=== PATIENT | female | born 1945 | race African-American/Black ===

== ENCOUNTER 2021-02-09 07:13 | Inpatient (IN) | payer OTHER ==
[2021-02-09 07:33] VITALS: BMI 25.4
[2021-02-09] MEDS ORDERED: HYDROmorphone HCL CARPU-JECT 2 MG/1 ML DISP.SYRIN IVPB ONE ×2 (07:50→15:59)
[2021-02-09] MEDS ORDERED: SODIUM CHLORIDE 500 ML IV STA (07:50)
[2021-02-09] MEDS ORDERED: HYDROmorphone HCl 2 MG/ML VIAL ONE ×2 (07:52→15:19)
[2021-02-09 09:01] LABS: BASO % 1.6 % (0-2.0); LYMPH % 5.2 % (8-40); MCH 35.8 pg (25.7-33.7); MEAN CELL VOLUME 99.4 fl (80-96); MEAN PLT VOLUME 8.7 fl (7.5-11.1); NEUT % 82.2 % (42.8-82.8); PLATELET COUNT 236 10^3/uL (134-434); RBC 1.51 M/mm3 (3.60-5.2); RDW 19.8 % (11.6-15.6); WHITE BLOOD COUNT 15.8 K/mm3 (4.0-10.0)
[2021-02-09 09:03] LABS: CALCIUM 8.9 mg/dL (8.5-10.1)
[2021-02-09 09:04] LABS: ALBUMIN 3.5 g/dl (3.4-5.0); BLOOD UREA NITROGEN 62.5 mg/dL (7-18)
[2021-02-09 09:06] LABS: RETICULOCYTES 6.46 % (0.5-1.5)
[2021-02-09 09:07] LABS: CREATININE 2.5 mg/dL (0.55-1.3)
[2021-02-09 09:09] LABS: BILIRUBIN,TOTAL 1.7 mg/dL (0.2-1)
[2021-02-09 09:12] LABS: HEMOGLOBIN 5.4 GM/dL (10.7-15.3)
[2021-02-09 10:07] LABS: ERYTHROCYTE SEDIMENTATION RATE 34 mm/hr (0-30)
[2021-02-09 10:11] LABS: INR 0.97 (0.83-1.09); PROTHROMBIN TIME (PATIENT) 11.4 SEC (9.7-13.0)
[2021-02-09 11:26] LABS: EPI CELLS 13 /uL (0-25.1); HYALINE CASTS 0 /uL (0-3.1); PH,URINE 5.5 (5.0-8.0); URINE APPEARANCE CLEAR; URINE BACTERIA 15 /uL (0-1359); URINE BILIRUBIN NEGATIVE (NEGATIVE); URINE COLOR YELLOW; URINE GLUCOSE (UA) NEGATIVE (NEGATIVE); URINE KETONE NEGATIVE (NEGATIVE); URINE LEUK ESTERASE NEGATIVE (NEGATIVE); URINE NITRITE NEGATIVE (NEGATIVE); URINE PROTEIN 3+ (NEGATIVE); URINE RBC 9 /uL (0-23.9); URINE UROBILINOGEN 0.2 mg/dL (0.2-1.0); URINE WBC 15 /uL (0-25.8)
[2021-02-09] MEDS ORDERED: HYDROmorphone HCL CARPU-JECT 2 MG/1 ML DISP.SYRIN IVPUSH PRN (13:06)
[2021-02-09] MEDS ORDERED: ACETAMINOPHEN 325 MG TABLET (FP) PO PRN (13:08)
[2021-02-09] MEDS ORDERED: HYDROmorphone HCl 2 MG/ML VIAL IVPB PRN (13:19)
[2021-02-09] MEDS ORDERED: HEPARIN NA (PORCINE) 5,000 UNITS/ML 1ML VIAL ONE (14:48)
[2021-02-09] MEDS: HEPARIN NA (PORCINE) 5,000 UNITS/ML 1ML VIAL SQ SCH ×2 (14:54→21:24)
[2021-02-09] MEDS: INSULIN SLIDING SCALE (NOVOLOG) 1 VIAL SQ SCH ×2 (17:32→21:25)
[2021-02-09] MEDS ORDERED: INSULIN REGULAR HUMAN 100 UNITS/ML *VIAL ONE (17:36)
[2021-02-09] MEDS: traZODone HCL 50 MG TABLET (FP) PO SCH (21:24)
[2021-02-09] MEDS: LABETALOL HCL 100 MG TABLET (FP) PO SCH (21:24)
[2021-02-09] MEDS: HYDROmorphone HCl 2 MG/ML VIAL IVPB PRN (21:53)
[2021-02-10] MEDS: HYDROmorphone HCl 2 MG/ML VIAL IVPB PRN ×2 (03:53→08:39)
[2021-02-10] MEDS: HEPARIN NA (PORCINE) 5,000 UNITS/ML 1ML VIAL SQ SCH ×2 (05:38→14:01)
[2021-02-10] MEDS: INSULIN SLIDING SCALE (NOVOLOG) 1 VIAL SQ SCH ×4 (06:08→21:55)
[2021-02-10 07:28] LABS: BASO % 0.8 % (0-2.0); EOS % 1.8 % (0-4.5); HEMATOCRIT 13.2 % (32.4-45.2); LYMPH % 9.5 % (8-40); MCH 35.6 pg (25.7-33.7); MCHC 35.6 g/dl (32.0-36.0); MEAN PLT VOLUME 8.3 fl (7.5-11.1); MONO % 8.5 % (3.8-10.2); NEUT % 79.4 % (42.8-82.8); PLATELET COUNT 196 10^3/uL (134-434); RBC 1.32 M/mm3 (3.60-5.2); RDW 20.6 % (11.6-15.6); WHITE BLOOD COUNT 13.6 K/mm3 (4.0-10.0)
[2021-02-10 07:32] LABS: HEMOGLOBIN 4.7 GM/dL (10.7-15.3)
[2021-02-10 07:48] LABS: CALCIUM 9.1 mg/dL (8.5-10.1)
[2021-02-10 07:49] LABS: ALBUMIN 3.1 g/dl (3.4-5.0); BLOOD UREA NITROGEN 49.1 mg/dL (7-18)
[2021-02-10 07:52] LABS: CREATININE 2.2 mg/dL (0.55-1.3); MAGNESIUM 3.1 mg/dL (1.8-2.4); PHOSPHOROUS 4.6 mg/dL (2.5-4.9)
[2021-02-10 07:53] LABS: BILIRUBIN,TOTAL 1.1 mg/dL (0.2-1); TOT PROT 6.4 g/dl (6.4-8.2)
[2021-02-10 09:29] LABS: ANISOCYTOSIS 2+; MACROCYTOSIS 0; PLATELET ESTIMATE NORMAL; SICKELED CELLS 2+; TARGET CELLS 1+
[2021-02-10] MEDS ORDERED: PT OWN MED DRAWER 7, Y5N ONE (09:58)
[2021-02-10] MEDS ORDERED: HYDROXYUREA 500 MG CAPSULE PO SCH (10:00)
[2021-02-10] MEDS: FUROSEMIDE 20 MG TABLET (FP) PO SCH (10:02)
[2021-02-10] MEDS: LABETALOL HCL 100 MG TABLET (FP) PO SCH ×2 (10:02→22:11)
[2021-02-10] MEDS: NIFEdipine E.R 60 MG TABLET PO SCH (10:02)
[2021-02-10] MEDS ORDERED: HYDROmorphone HCl 2 MG/ML VIAL IVPB ONE (10:03)
[2021-02-10] MEDS: LIDOCAINE 5% TOPICAL PATCH TP SCH (11:46)
[2021-02-10] MEDS ORDERED: HYDROmorphone HCl 2 MG/ML VIAL IVPB PRN (15:46)
[2021-02-10] MEDS: FOLIC ACID 1 MG TABLET (FP) PO SCH (16:36)
[2021-02-10] MEDS: HYDROXYUREA 500 MG CAPSULE PO SCH (17:24)
[2021-02-10] MEDS ORDERED: HYDROmorphone HCL 2 MG TABLET PO PRN (17:50)
[2021-02-10] MEDS ORDERED: LIDOCAINE PATCH REMOVAL MC SCH (22:00)
[2021-02-10] MEDS: traZODone HCL 50 MG TABLET (FP) PO SCH (22:11)
[2021-02-11] MEDS: ACETAMINOPHEN 1000 MG/100 ML VIAL IVPB PRN ×3 (03:17→20:09)
[2021-02-11] MEDS: INSULIN SLIDING SCALE (NOVOLOG) 1 VIAL SQ SCH ×3 (06:22→17:11)
[2021-02-11 08:57] LABS: BASO % 1.1 % (0-2.0); EOS % 2.3 % (0-4.5); HEMATOCRIT 12.1 % (32.4-45.2); LYMPH % 12.1 % (8-40); MCH 36.1 pg (25.7-33.7); MCHC 36.1 g/dl (32.0-36.0); MEAN CELL VOLUME 99.9 fl (80-96); MEAN PLT VOLUME 8.6 fl (7.5-11.1); MONO % 11.3 % (3.8-10.2); NEUT % 73.2 % (42.8-82.8); PLATELET COUNT 175 10^3/uL (134-434); RBC 1.22 M/mm3 (3.60-5.2); RDW 21.3 % (11.6-15.6)
[2021-02-11 09:18] LABS: HEMOGLOBIN 4.4 GM/dL (10.7-15.3)
[2021-02-11 09:23] LABS: CALCIUM 9.2 mg/dL (8.5-10.1)
[2021-02-11 09:25] LABS: BLOOD UREA NITROGEN 50.6 mg/dL (7-18)
[2021-02-11 09:28] LABS: CREATININE 2.4 mg/dL (0.55-1.3)
[2021-02-11 09:29] LABS: BILIRUBIN,TOTAL 1.7 mg/dL (0.2-1); TOT PROT 6.4 g/dl (6.4-8.2)
[2021-02-11] MEDS ORDERED: PT OWN MED DRAWER 7, Y5N ONE (09:33)
[2021-02-11 09:43] VITALS: TEMP 98.8
[2021-02-11] MEDS: FUROSEMIDE 20 MG TABLET (FP) PO SCH (09:47)
[2021-02-11] MEDS: FOLIC ACID 1 MG TABLET (FP) PO SCH (09:47)
[2021-02-11] MEDS: LABETALOL HCL 100 MG TABLET (FP) PO SCH (09:47)
[2021-02-11] MEDS: HYDROXYUREA 500 MG CAPSULE PO SCH (09:47)
[2021-02-11] MEDS: LIDOCAINE 5% TOPICAL PATCH TP SCH (09:47)
[2021-02-11] MEDS: NIFEdipine E.R 60 MG TABLET PO SCH (09:47)
[2021-02-11 14:32] VITALS: BP 114/37; PULSE 68
[2021-02-11] MEDS ORDERED: EPOETIN ALFA-EPBX 40,000 UNIT/ML VIAL SQ ONE ×2 (16:39→18:00)
[2021-02-11] MEDS ORDERED: IRON SUCROSE INJECTION 200 MG in SODIUM CHLORIDE 90 ML IVPB ONE (17:00)
[2021-02-12] MEDS ORDERED: IRON SUCROSE INJECTION 200 MG in SODIUM CHLORIDE 90 ML IVPB SCH (10:00)
[2021-02-12] MEDS ORDERED: EPOETIN ALFA-EPBX 40,000 UNIT/ML VIAL SQ ONE (10:00)
[2021-02-12] MEDS ORDERED: EPOETIN ALFA-EPBX 40,000 UNIT/ML VIAL SQ SCH (10:00)
== END 2021-02-11 20:41 | disposition short-term general hospital (02) | DRG 812 ==
LOC: JER 07:13 → JERBED 17:30 → J6S 18:56
PROVIDERS: ADMIT Internal Medicine; ATTEND Nurse Practitioner Acute Care
DX: D57.00 Hb-SS disease with crisis, unspecified (principal); D64.9 Anemia, unspecified; I12.9 Hypertensive chronic kidney disease with stage 1 through stage 4 chronic kidney disease, or unspecified chronic kidney disease; E11.22 Type 2 diabetes mellitus with diabetic chronic kidney disease; N18.9 Chronic kidney disease, unspecified
CPT/HCPCS: 36415; 71045-TC-FY; 73523-TC-FY; 73562-TC-LT-FY; 73700-TC-RT; 80053; 81003; 82607; 82962; 83010; 83036; 83540; 83550; 83615; 83735; 84100; 85025; 85045; 85610; 85651; 86140; 86850; 86870; 86900; 86901; 86902; 93005; 93010; 97116-GP; 97162-GP; 99285-25; C9803; J0131; J1644; J1756; J8999; Q5106; U0003; U0005